=== PATIENT | male | born 1960 | race Two or more races ===

== ENCOUNTER 2020-12-08 17:44 | Inpatient (IN) | payer OTHER, MEDICAID ==
[~2020-12-08] VITALS: Ht 170.2 cm; Wt 199.6 kg
[2020-12-08] MEDS ORDERED: MORPHINE SULFATE 4 MG/ML CPJ (NOT FOR IM USE) IV STA (18:29)
[2020-12-08] MEDS ORDERED: ONDANSETRON HCL 4MG/2ML INJ IV STA (18:29)
[2020-12-08] MEDS ORDERED: SODIUM CHLORIDE 0.9% 1,000 ML IV ONE (18:30)
[2020-12-08 21:12] LABS: BASOPHILS % 0.6 % (0.0-2.0); EOSINOPHILS % 2.2 % (0.0-5.0); HEMATOCRIT. 41.6 % (42.0-52.0); HEMOGLOBIN. 13.6 g/dL (14.0-18.0); LYMPHOCYTES % 20.4 % (20.0-50.0); MEAN CORPUSCULAR HEMOGLOBIN 25.5 pg (28.0-32.0); MEAN CORPUSCULAR VOLUME 77.7 fL (80.0-94.0); MEAN PLATELET VOLUME 7.9 fl (7.4-10.4); MONOCYTES % 6.8 % (2.0-8.0); PLATELET 297 x1000/uL (130-400); RED BLOOD CELL COUNT 5.36 mill/uL (4.7-6.1); RED CELL DISTRIBUTION WIDTH 16.3 % (11.6-14.6)
[2020-12-08 21:14] LABS: CHLORIDE 104 mEq/L (98-107)
[2020-12-09] MEDS ORDERED: LISI40TA13 PO (10:22)
[2020-12-09] MEDS ORDERED: BUPR-74 PO (10:22)
[2020-12-09] MEDS ORDERED: HYDR25TA PO (10:22)
[2020-12-09] MEDS ORDERED: ATOR40TA70 PO (10:22)
[2020-12-09] MEDS ORDERED: DIPH50CA38 PO (10:22)
[2020-12-09] MEDS ORDERED: LORA10TA7 PO (10:22)
[2020-12-09] MEDS ORDERED: SERT-112 PO (10:22)
[2020-12-09] MEDS ORDERED: MELA5TAB19 PO (10:22)
[2020-12-09] MEDS ORDERED: METF-414 PO (10:22)
[2020-12-09] MEDS ORDERED: SERT50TA12 PO (10:22)
[2020-12-09 10:34] VITALS: BP 134/78
[2020-12-09] MEDS ORDERED: *PATIENT'S OWN MEDICATION STORAGE XX SCH (10:45)
[2020-12-09] MEDS ORDERED: MAGNESIUM/ALUMINUM HYDROXIDE/SIMETHICONE 30ML UDC PO PRN (11:30)
[2020-12-09] MEDS ORDERED: CLONIDINE 0.1MG TABLET PO PRN (11:30)
[2020-12-09] MEDS ORDERED: HYDROCODONE/ACETAMINOPHEN 5/325MG TABLET PO PRN (11:30)
[2020-12-09] MEDS ORDERED: DEXTROSE 50% WATER 50ML SYRINGE IV PRN ×2 (11:30)
[2020-12-09] MEDS ORDERED: ACETAMINOPHEN 325MG TABLET PO PRN (11:30)
[2020-12-09] MEDS ORDERED: ONDANSETRON HCL 4MG/2ML INJ IV PRN (11:30)
[2020-12-09] MEDS ORDERED: ENOXAPARIN 40MG/0.4ML SYR SUBCUT SCH (11:30)
[2020-12-09] MEDS ORDERED: NALOXONE HCL 0.4MG/ML VIAL IV PRN (11:45)
[2020-12-09] MEDS: BLOOD SUGAR DIAGNOSTIC STRIP TEST SCH ×3 (12:20→21:28)
[2020-12-09] MEDS: OMEPRAZOLE 20MG CAPSULE EXTENDED RELEASE PO SCH (12:45)
[2020-12-09] MEDS: ENOXAPARIN 40MG/0.4ML SYR SUBCUT SCH ×2 (12:50→22:14)
[2020-12-09] MEDS: INSULIN LISPRO 100 UNITS/ML SUBCUT SCH ×3 (14:07→22:16)
[2020-12-09 20:00] VITALS: BP 124/66
[2020-12-10] VITALS: BP 133/65
[2020-12-10 04:00] VITALS: BP 117/68
[2020-12-10 06:15] LABS: BASOPHILS % 0.5 % (0.0-2.0); EOSINOPHILS % 6.8 % (0.0-5.0); HEMATOCRIT. 37.3 % (42.0-52.0); HEMOGLOBIN. 12.1 g/dL (14.0-18.0); LYMPHOCYTES % 21.7 % (20.0-50.0); MEAN CORPUSCULAR HEMOGLOBIN 25.5 pg (28.0-32.0); MEAN CORPUSCULAR VOLUME 78.7 fL (80.0-94.0); MEAN PLATELET VOLUME 8.4 fl (7.4-10.4); MONOCYTES % 9.8 % (2.0-8.0); NEUTROPHILS % 61.2 % (40.0-76.0); PLATELET 238 x1000/uL (130-400); RED BLOOD CELL COUNT 4.73 mill/uL (4.7-6.1); RED CELL DISTRIBUTION WIDTH 16.9 % (11.6-14.6)
[2020-12-10 06:30] LABS: CHLORIDE 105 mEq/L (98-107)
[2020-12-10] MEDS: OMEPRAZOLE 20MG CAPSULE EXTENDED RELEASE PO SCH (06:39)
[2020-12-10] MEDS: BLOOD SUGAR DIAGNOSTIC STRIP TEST SCH ×3 (06:43→17:01)
[2020-12-10 08:00] VITALS: BP 102/64
[2020-12-10] MEDS: ENOXAPARIN 40MG/0.4ML SYR SUBCUT SCH (08:58)
[2020-12-10] MEDS: INSULIN LISPRO 100 UNITS/ML SUBCUT SCH ×3 (09:16→18:23)
[2020-12-10 12:00] VITALS: BP 151/93
[2020-12-10 16:00] VITALS: BP 123/79
[2020-12-10 17:56] VITALS: BP 138/76
== END 2020-12-10 20:10 | disposition short-term general hospital (02) | DRG 556 ==
LOC: ER 17:44 → 6EST 23:34 → CANRESERV 23:53 → ENRESERV 23:53 → CANRESERV 12-09 07:55 → ENRESERV 12-09 08:04
PROVIDERS: ADMIT Internal Medicine; ATTEND Internal Medicine
DX: M25.551 Pain in right hip (principal); Z68.44 Body mass index [BMI] 60.0-69.9, adult; E11.9 Type 2 diabetes mellitus without complications; R26.2 Difficulty in walking, not elsewhere classified; E66.01 Morbid (severe) obesity due to excess calories; W18.30XA Fall on same level, unspecified, initial encounter; J45.909 Unspecified asthma, uncomplicated; I10 Essential (primary) hypertension; Y93.89 Activity, other specified; Y92.89 Other specified places as the place of occurrence of the external cause; Y99.8 Other external cause status; Z87.81 Personal history of (healed) traumatic fracture; Z86.59 Personal history of other mental and behavioral disorders
CPT/HCPCS: 36415; 71045; 73590; 80048; 80053; 82962; 83036; 83880; 84484; 85025; 93005; 93970; 97161; 99285; J1650; J1815; J2270; J2405; J7030